=== PATIENT | male | born 1980 | race African-American/Black ===

== ENCOUNTER 2016-06-24 14:50 | Emergency (ER) | payer MEDICAID ==
[~2016-06-24] VITALS: Ht 185.4 cm; Wt 91.6 kg
[2016-06-24 18:20] VITALS: BP 126/80
== END 2016-06-24 19:05 | disposition home or self-care (01) ==
LOC: ER 15:00
DX: S62.665A Nondisplaced fracture of distal phalanx of left ring finger, initial encounter for closed fracture (principal); S50.311A Abrasion of right elbow, initial encounter; S50.312A Abrasion of left elbow, initial encounter; M25.532 Pain in left wrist; V19.9XXA Pedal cyclist (driver) (passenger) injured in unspecified traffic accident, initial encounter; Y99.8 Other external cause status; Y93.89 Activity, other specified; Y92.488 Other paved roadways as the place of occurrence of the external cause
CPT/HCPCS: 29130; 73080; 73130